=== PATIENT | male | born 1930 | race Caucasian/White ===

== ENCOUNTER 2016-02-23 14:45 | Emergency (ER) | payer BC, MEDICARE ==
[2016-02-23 16:06] LABS: Hematocrit 41.4 % (42.0-52.0); Hemoglobin 13.6 gm/dL (13.5-18.0); Mean Cell Volume 83.5 fl (78-100); Mean Corpuscular Hemoglobin 27.4 pg (27-31); Mean Corpuscular Hgb Conc 32.9 g/dl (32-36); Mean Platelet Volume 11.9 fl (6.0-9.5); Neutrophil # 5.5 K/mm3 (1.3-6.0); Neutrophil % 71.2 % (42-75.0); Platelet Count 148 K/mm3 (150-450); Red Blood Count 4.96 M/mm3 (4.7-6.0); Red Cell Distribution Width 15.5 % (11.5-14.0); White Blood Count 7.7 K/mm3 (4.0-10.5)
[2016-02-23 16:24] LABS: BUN/Creatinine Ratio 14.1 (9.0-21.6); Blood Urea Nitrogen 13 mg/dL (6-23); Chloride 102 mmol/L (97-106); Glucose * 102 mg/dL (70-110); Potassium 4.1 mmol/L (3.4-4.6); Sodium 137 mmol/L (132-142)
[2016-02-23 16:25] LABS: ALT 27 U/L (19-67); AST 18 U/L (0-48); Albumin * 3.5 gm/dl (3.4-5.0); Alkaline Phosphatase * 83 U/L (50-170); Anion Gap 11.6 mmol/L (6.8-13.8); Bilirubin, Total 0.4 mg/dL (0.0-1.1); Ca. Corrected For Albumin 8.7 mg/dL (8.4-10.2); Calcium * 8.6 mg/dL (7.9-10.9); Carbon Dioxide 27.5 mmol/L (24-32.6); Total Protein 6.6 gm/dL (6.2-8.2)
[2016-02-23 16:26] LABS: Troponin I Less than 0.017 ng/ml (0.00-0.10)
[2016-02-23] MEDS ORDERED: MECLIZINE HCL 25 MG TABLET PO ONE (17:06)
[2016-02-23] MEDS ORDERED: LABETALOL HCL 5 MG/ML VIAL IV ONE (17:19)
[2016-02-23] MEDS ORDERED: LISINOPRIL 10 MG TABLET PO ONE (17:43)
[2016-02-23] MEDS ORDERED: MECLIZINE HCL 25 MG TABLET ONE (17:53)
[2016-02-23] MEDS ORDERED: LISINOPRIL 10 MG TABLET ONE (17:53)
--- NOTE | 2016-02-23 17:56 | ERNOTE ---
Medical Problem HPI - Narrative Date of Service: 02/23/16 - General Chief Complaint: General Assessment Time Seen by Provider: 02/23/16 15:05 Source: patient - Immun/Allergies/Home Medications Immunizations: IMMUNIZATION HX History of Influenza Vaccine Yes Hx Pneumococcal Vaccination Yes Allergies/Adverse Reactions: Allergies No Known Allergies Allergy (Verified 02/23/16 14:57) Home Medications: HOME MEDICATIONS Levothyroxine Sodium [Synthroid] 100 mcg PO DAILY 02/23/16 [Last Taken Unknown] Lisinopril [Zestril] 10 mg PO DAILY #30 tablet 02/23/16 [Last Taken Unknown] Meclizine HCl [Antivert] 25 mg PO QID PRN #20 tab 02/23/16 [Last Taken Unknown] Pravastatin Sodium [Pravachol] 40 mg PO HS 02/23/16 [Last Taken Unknown] Sotalol HCl [Betapace] 80 mg PO DAILY 02/23/16 [Last Taken Unknown] - History of Present History Narrative: Pt complains of dizziness with sudden head movements. He has had vertigo in the past, but it usually does not last this long. Timing: constant Severity: mild Review of Systems - Review of Systems Constitutional: Present: See HPI EYE: Present: no symptoms reported ENT: Present: no symptoms reported Respiratory: Present: no symptoms reported Cardiology: Present: no symptoms reported Gastrointestinal/Abdominal: Present: no symptoms reported Genitourinary: Present: no symptoms reported Musculoskeletal: Present: no symptoms reported Skin: Present: no symptoms reported Neurological: Present: no symptoms reported Endocrine: Present: no symptoms reported Hematologic/Lymphatic: Present: no symptoms reported Psych: Present: no symptoms reported - Patient's Past Medical History Patient History - Medical: Hypothyroidism, Other - vertigo Patient History - Cardiac/Respiratory: Hypertension Patient History - Cancer: No Hx of Cancer Patient History - Surgical Procedures: Cardiac stent - Social History Living Situations: home Alcohol Use: none Drug Use: none Physical Exam - Physical Exam General Appearance: Present: wd/wn, alert, mild distress Eye Exam: Normal inspection: bilateral, PERRL: bilateral Ears, Nose, Throat: Present: normal ENT inspection, hearing grossly normal, normal pharynx Neck: Present: normal inspection, nontender Respiratory: Present: no respiratory distress, normal breath sounds, no accessory muscle use, chest nontender, lungs clear Cardiovascular/Chest: Present: no murmur, normal peripheral pulses, tachycardia Gastrointestinal/Abdominal: Present: normal bowel sounds, nontender, nondistended, soft, no organomegaly Rectal Exam: Present: deferred Back Exam: Present: normal inspection, normal range of motion Extremity Exam: Present: normal inspection, non-tender, no edema, normal range of motion Neurological Exam: Present: alert, oriented, normal mood/affect, other - dizziness with sudden head movements. No nystagmus and a negative skew test. Skin Exam: Present: normal color, warm/dry Lymphatic Exam: Present: no adenopathy ED Progress - Results and Orders Patient's Lab Results:: I have reviewed the patient's lab results. - Vital Signs Patient's Vital Signs:: I have reviewed the patient's vital signs. Vital Signs: Vital Signs 02/23/16 02/23/16 02/23/16 14:46 15:10 15:25 Temperature 35.1 C L Pulse Rate 54 L 55 L 53 L Respiratory 12 13 13 Rate Blood Pressure 170/76 210/92 197/85 O2 Sat by Pulse 96 94 94 Oximetry 02/23/16 15:55 Temperature Pulse Rate 55 L Respiratory 14 Rate Blood Pressure 215/96 O2 Sat by Pulse 94 Oximetry - EKG EKG: NSR - X-Ray X-Ray #1 X-Ray: chest Interpretation: Reviewed by me X-ray Comments: CT results were reviewed with the patient. - Progress/Reassessment Chief Complaint: General Assessment Progress:: Unchanged - Transfer of Care Expected Disposition: Discharge Plan - Plan Plan: Pt had no indication of any posterior circulation impairment. I suspect vertigo and he did improve somewhat on Antivert. He is apparently having afternoon blood pressure spiking which may account for some of the problem. I will add Lisinopril 10mg to the mix and he will see Dr. Castaneda next week to re-assess his progress. Departure - Departure Clinical Impression: Hypertension, Vertigo Disposition: Home self-care Condition: Good Instructions: Hypertension, [id number], Vertigo, [id number] Referrals: Darleen Castaneda MD [Primary Care Provider] - Prescriptions: Lisinopril [Zestril] 10 mg PO DAILY #30 tablet Meclizine HCl [Antivert] 25 mg PO QID PRN #20 tab PRN Reason: DIZZINESS
[2016-02-23 18:33] VITALS: BP 162/62
== END 2016-02-23 18:46 | disposition home or self-care (01) ==
LOC: ER 14:45
DX: R42 Dizziness and giddiness (principal); I10 Essential (primary) hypertension; Z95.5 Presence of coronary angioplasty implant and graft; E03.9 Hypothyroidism, unspecified